=== PATIENT | female | born 1945 | race Caucasian/White ===

== ENCOUNTER → 2017-03-14 | Outpatient (CLI) | payer OTHER ==
[~2017-03-14] MED LIST: ASPI-496 PO; CHOL500014 PO; CIPR500T87 PO; DULO60CA7 PO; HYDR25TA6 PO; METF500T4 PO; SCOP1PAT TD; TRAM50TA2 PO; VALS320T2 PO; VITA1CAP PO; VITORIN PO
== END | disposition home or self-care (01) ==
LOC: CFH 10:37
PROVIDERS: ATTEND Internal Medicine
DX: Z12.31 Encounter for screening mammogram for malignant neoplasm of breast (principal)
CPT/HCPCS: 77063; G0202